=== PATIENT | female | born 1995 | race Caucasian/White ===

== ENCOUNTER 2017-07-02 20:26 | Emergency (ER) | payer MEDICAID, OTHER ==
[~2017-07-02] VITALS: Ht 167.6 cm; Wt 72.7 kg
[2017-07-02] MEDS ORDERED: normal saline 1000ml 1,000 ML IV ONE (22:03)
[2017-07-02] MEDS ORDERED: meperidine/PF 50mg/ml syringe IV ONE (23:05)
[2017-07-02 23:34] VITALS: BP 121/68
[2017-07-02] MEDS ORDERED: MIDAZolam 5mg/5ml vial ONE ×2 (23:38→23:53)
[2017-07-02] MEDS ORDERED: LIDOcaine Viscous 15ml cup ONE (23:38)
[2017-07-02] MEDS ORDERED: fentaNYL/PF 50MCG/1 ML 2ML syringe ONE (23:38)
[2017-07-03] MEDS ORDERED: MIDAZolam 5mg/5ml vial ONE (00:02)
[2017-07-03] MEDS ORDERED: fentaNYL/PF 50MCG/1 ML 2ML syringe ONE (00:02)
[2017-07-03 00:12] VITALS: BP 125/67
[2017-07-03 00:16] VITALS: BP 122/74
[2017-07-03 00:21] VITALS: BP 119/70
[2017-07-03] MEDS ORDERED: normal saline 1000ml 1,000 ML IV SCH (00:27)
[2017-07-03] MEDS ORDERED: LIDOcaine Viscous 15ml cup PO ONE (00:30)
[2017-07-03] MEDS ORDERED: simethicone 40mg/0.6ml oral drops 30ml MC ONE (00:30)
[2017-07-03] MEDS ORDERED: MIDAZolam 5mg/5ml vial IV PRN (00:30)
[2017-07-03] MEDS ORDERED: fentaNYL/PF 50MCG/1 ML 2ML syringe IV PRN (00:30)
[2017-07-03 00:31] VITALS: BP 123/74
[2017-07-03 01:28] VITALS: BP 120/61
== END 2017-07-03 01:29 | disposition home or self-care (01) ==
LOC: ER 20:27
DX: T18.128A Food in esophagus causing other injury, initial encounter (principal); F12.10 Cannabis abuse, uncomplicated; Z91.040 Latex allergy status; W45.8XXA Other foreign body or object entering through skin, initial encounter; Y93.89 Activity, other specified; Y92.89 Other specified places as the place of occurrence of the external cause; Y99.8 Other external cause status
CPT/HCPCS: 43239; 43247; 70360; 71046; 96361; 96374; 99152; 99153; 99285; J2175; J2250; J3010; J7030; 96360; 96375; A4620; G0500

== ENCOUNTER 2020-01-25 11:06 | Emergency (ER) | payer MEDICAID ==
[~2020-01-25] VITALS: Ht 170.2 cm; Wt 68.2 kg
[2020-01-25 11:30] VITALS: BP 128/82
--- NOTE | 2020-01-25 11:42 | NUR ---
PT C/O FEELING ANXIOUS AND WASNT TRYING TO KILL HERSELF. PT RECENTLY STARTED ON PRAZOSIN FOR NIGHT GIRALDO BUT SHE ONLY TOOK ONE DOSE SHE DIDNT THINK IT WAS WORKING.
--- NOTE | 2020-01-25 11:54 | NUR ---
PT STATES SHE IS NOT SUICIDAL AND DOESNT WANT TO HURT HERSELF. PT STATES SHE IS JUST HAVING A PANIC ATTACK POSSIBLY BROUGHT ON BY PROBLEMS IN HER RELATIONSHIP WITH HER BOYFRIEND WHO MAY OR MAY NOT WANT TO BREAK UP WITH HER. PT STATES THAT WRAPPING SOMETHING AROUND HER NECK TAKES HER FOCUS OFF HER ANXIETY. EXPLAIN TO PT THE PROCESS THAT WILL BE GOING ON IN ORDER TO GET MEDICALLY CLEARED AND THEN SEEN AND EVALUATED BY [facility] AND PT IS MORE CALM NOW. AT THAT TIME SHE CAN EXPLAIN HOW SHE IS FEELING. INFORM PT THAT THE ER DR WILL BE COMING IN TO EVALUATE HER AND IF SHE WOULD LIKE SOMETHING FOR ANXIETY SHE CAN REQUEST THAT FROM THE DR. PT IS NOW LAYING DOWN MUCH MORE CALM.
[2020-01-25] MEDS ORDERED: NO HOME MEDS (13:02)
[2020-01-25 13:19] LABS: URINE HCG NEGATIVE (NEG)
[2020-01-25 13:20] LABS: CLARITY,URINE SLIGHTLY CLOUDY (Clear); GLUCOSE, URINE NEGATIVE (Neg); KETONES,URINE >=80 mg/dl (Neg); LEUKOCYTE ESTERASE ,URINE NEGATIVE (Neg); NITRITES, URINE NEGATIVE (Neg); OCCULT BLOOD,URINE NEGATIVE (Neg); PH,URINE 5.5 (4.8-8.0); PROTEIN,URINE NEGATIVE (Neg); UROBILINOGEN,URINE 0.2 E.U/dL (0.2-1.0)
[2020-01-25 13:21] LABS: COLOR,URINE DARK YELLOW (Yellow); UA COLLECTION TYPE VOIDED
[2020-01-25 13:31] LABS: BACTERIA,URINE 1+ /HPF (Neg); MUCUS STRANDS MANY /LPF (Neg); RBC,URINE NONE SEEN /HPF (0-2); WBC,URINE 0-4 /HPF (0-4)
[2020-01-25 13:32] LABS: SQUAMOUS EPITHELIAL CELL,UR MANY /LPF (FEW); URINE AMPHETAMINE SCREEN NEGATIVE (Neg); URINE BARBITUATE SCREEN NEGATIVE (Neg); URINE BENZODIAZEPINES SCREEN POSITIVE (Neg); URINE CANNABINOID SCREEN POSITIVE (Neg); URINE COCAINE SCREEN NEGATIVE (Neg); URINE METHADONE SCREEN NEGATIVE (Neg); URINE OPIATE SCREEN NEGATIVE (Neg); URINE PHENCYCLIDINE SCREEN NEGATIVE (Neg)
--- NOTE | 2020-01-25 14:19 | NUR ---
PT IS MEDICALLY CLEARED BY PROVIDER AND WILL HOLD OFF ON GETTING LABS DRAWN. THEY MAY STILL NEED TO BE DRAWN LATER IF A PLACING FACILITY REQUIRES THEM.
--- NOTE | 2020-01-25 14:45 | NUR ---
[facility] CLINICIAN WITH PT FOR EVAL.
== END 2020-01-25 16:28 | disposition home or self-care (01) ==
LOC: ER 11:06
DX: F41.0 Panic disorder [episodic paroxysmal anxiety] (principal); F12.90 Cannabis use, unspecified, uncomplicated; Z98.890 Other specified postprocedural states; Z91.040 Latex allergy status
CPT/HCPCS: 80305; 81001; 81025; 99285

== ENCOUNTER 2020-04-30 11:20 | Emergency (ER) | payer MEDICAID ==
[~2020-04-30] VITALS: Ht 165.1 cm; Wt 65.0 kg
[~2020-04-30 11:20] MED LIST: NO HOME MEDS
[2020-04-30] MEDS ORDERED: ondansetron/PF 4mg/2ml inj IV ONE (11:45)
[2020-04-30] MEDS ORDERED: LORazepam 2 mg/ml vial IV ONE (11:45)
[2020-04-30] MEDS ORDERED: normal saline 1000ML IV soln IVB ONE (11:45)
[2020-04-30] MEDS ORDERED: glucagon, human recombinant 1mg kit IV ONE (11:45)
--- NOTE | 2020-04-30 12:43 | NUR ---
LONG TALK WITH PATIENT REGARDING WHETHER SHE WANTS TREATMENT OR NOT. PATIENT HAD CHICKEN STUCK IN HER THROAT IN 2018 AND REQUIRED A EGD TO REMOVE Addendum: 04/30/20 at 1246 by ABEL CHICKEN
[2020-04-30] MEDS ORDERED: LIDOcaine Viscous 15ml cup MM ONE (12:50)
--- NOTE | 2020-04-30 13:09 | NUR ---
Patient has a history of chicken removal via egd 2 years ago. I discussed the importance of at least getting her medicine that was ordered, signed off by Katia TITUS, and not given. I discussed that at least one medicine will help peristalsis, the Glucagon. We discussed her IV attempt and that I could draw labs from the IV and that I see veins without even using a tourniquet. 20 guage iv started to right wrist wot 1 attempt after patient consented and we joked and she smiled. Normal saline, glucagon, zofran and ativan given as ordered and signed off by Katia Titus peviously and not given. patient was hesitant for iv because 3 attempts were attempted prior to my arrival. patient is pleasant and cooperative but she had appeared scared and stated that I made her feel at ease. CHANDNI Barbour aware of discussion and iv placement and IV meds given.
[2020-04-30 13:14] LABS: BASOPHILS # (AUTO) 0.1 X10'3 (0-0.2); BASOPHILS % (AUTO) 0.7 % (0-1); EOSINOPHILS # (AUTO) 0.2 X10'3 (0-0.9); EOSINOPHILS % (AUTO) 1.9 % (0-6); HEMATOCRIT 36.2 % (35.0-45.0); HEMOGLOBIN 11.5 g/dl (12.0-16.0); LYMPHOCYTES # (AUTO) 2.1 X10'3 (1.1-4.8); LYMPHOCYTES % (AUTO) 26.6 % (21-51); MEAN CORPUSCULAR HEMOGLOBIN 24.4 PG (27.0-31.0); MEAN CORPUSCULAR HGB CONC 31.8 g/dL (33.0-36.5); MEAN CORPUSCULAR VOLUME 76.6 FL (78-98); MEAN PLATELET VOLUME 7.8 FL (7.4-10.4); MONOCYTES # (AUTO) 0.6 X10'3 (0-0.9); MONOCYTES % (AUTO) 7.2 % (2-12); NEUTROPHILS # (AUTO) 5.1 X10'3 (1.8-7.7); NEUTROPHILS % (AUTO) 63.6 % (42-75); PLATELET COUNT 449 X10'3 (140-440); RED BLOOD COUNT 4.73 X10'6 (4.20-5.60); RED CELL DISTRIBUTION WIDTH 16.3 % (11.5-14.5)
[2020-04-30 13:31] LABS: ALANINE AMINOTRANSFERASE 86 U/L (12-78); ALBUMIN 4.4 G/DL (3.4-5.0); ALBUMIN/GLOBULIN RATIO 1.2 (1.1-1.5); ALKALINE PHOSPHATASE 49 IU/L (46-116); ANION GAP 12 (8-16); ASPARTATE AMINO TRANSFERASE 69 U/L (10-37); BILIRUBIN,TOTAL 0.6 MG/DL (0.1-1.0); BLOOD UREA NITROGEN 13 MG/DL (7-18); BUN/CREATININE RATIO 15.9 (6.6-38.0); CALCIUM 9.3 MG/DL (8.5-10.1); CHLORIDE 107 MMOL/L (99-107); CREATININE 0.82 MG/DL (0.40-0.90); GLUCOSE 79 MG/DL (70-104); POTASSIUM 3.4 MMOL/L (3.5-5.1); SODIUM 145 MMOL/L (135-145); TOTAL CARBON DIOXIDE 25.6 MMOL/L (24-32); TOTAL PROTEIN 8.2 G/DL (6.4-8.2); eGFR 86 ML/MIN
--- NOTE | 2020-04-30 13:41 | NUR ---
pPA AWARE PATIENT STILL SPITTING UP HER MUCOUS IN HER MOUTH AND PATIENT UNABLE TO HOLD DOWN CARBONATED BEVERAGE AND THREW IT UP WELL THE VISCOUS LIDOCAINE BUT DENIES NAUSEA
--- NOTE | 2020-04-30 14:11 | NUR ---
SPOKE TO [facility] REGARDING PATIENT. CHANDNI CABRERA CONFIRMED THAT DR CASILLAS WAS PAGED
--- NOTE | 2020-04-30 14:16 | NUR ---
GI LAB COMING FOR HER. PATIENT IS CHANGING INTO GOWN
--- NOTE | 2020-04-30 14:17 | NUR ---
EARLIER PATIENT PROVIDED URINE CUP, WIPES AND BAG FOR UA
--- NOTE | 2020-04-30 14:23 | NUR ---
DARWIN NOTES BY RACHEL WERE ENTERED BY ME TO GI WITH JOSE EDUARDO FONTANA. BEDSIDE REPORT
[2020-04-30 14:27] VITALS: BP 129/70
[2020-04-30] MEDS ORDERED: fentaNYL/PF 50MCG/1 ML 2ML syringe ONE ×2 (14:35→15:35)
[2020-04-30] MEDS ORDERED: LIDOcaine Viscous 15ml cup ONE (14:35)
[2020-04-30] MEDS ORDERED: MIDAZolam 5mg/5ml vial ONE ×2 (14:35→15:35)
[2020-04-30 15:45] VITALS: BP 128/69
[2020-04-30 15:55] VITALS: BP 119/82
[2020-04-30] MEDS ORDERED: PANT-47 PO (15:58)
[2020-04-30 16:05] VITALS: BP 118/65
[2020-04-30 16:15] VITALS: BP 118/65
--- NOTE | 2020-04-30 16:46 | NUR ---
PATIENT BACL FROM GI LAB, BEDSIDE REPORT FROM EVAN WHITT: CHICKEN REMOVED FROM THROAT, WOULD NOT HAVE PASSED NATURALLY PER REPORT. PATIENT RECEIVED 10 MG VERSED AND 200 MCG FENTANYL. DISCUSSED DISCHARGE WITH DR MATSON, ORDER RECEIVED
[2020-04-30 16:48] VITALS: BP 104/60
[2020-04-30] MEDS ORDERED: pantoprazole 40 MG vial IV ONE (16:50)
[2020-04-30] MEDS ORDERED: PANT20TA18 PO (16:51)
== END 2020-04-30 18:07 | disposition home or self-care (01) ==
LOC: ER 11:21
DX: T18.128A Food in esophagus causing other injury, initial encounter (principal); F12.90 Cannabis use, unspecified, uncomplicated; Z91.040 Latex allergy status; Z79.899 Other long term (current) drug therapy; X58.XXXA Exposure to other specified factors, initial encounter; Y93.89 Activity, other specified; Y92.89 Other specified places as the place of occurrence of the external cause; Y99.8 Other external cause status
CPT/HCPCS: 36415; 43247; 80053; 85025; 96361; 96374; 96375; 99152; 99153; 99285; C1773; C9113; J1610; J2060; J2250; J2405; J3010; J7030; J7040; A4620

== ENCOUNTER 2024-02-26 09:50 | Emergency (ER) | payer MEDICAID ==
[~2024-02-26] VITALS: Ht 167.6 cm; Wt 79.0 kg
[~2024-02-26 09:50] MED LIST changes: +PANT-47 PO; +PANT20TA18 PO
[2024-02-26 10:51] VITALS: BP 121/57; PULSE 69; RESP 16; TEMP 97.9; O2SAT 100
== END 2024-02-26 10:55 | disposition home or self-care (01) ==
LOC: ER 09:51
DX: M79.672 Pain in left foot (principal); F12.90 Cannabis use, unspecified, uncomplicated; Z91.040 Latex allergy status; Z79.899 Other long term (current) drug therapy
CPT/HCPCS: 73630; 99284; L4360